=== PATIENT | male | born 1965 | race Caucasian/White ===

== ENCOUNTER 2017-06-25 19:05 | Emergency (ER) | payer BC, OTHER ==
[~2017-06-25] VITALS: Ht 177.8 cm; Wt 96.6 kg
[~2017-06-25 19:05] MED LIST: CEPH500C PO
[2017-06-25 19:13] VITALS: TEMP 36.7; Ht 177.8 cm; Wt 96.6 kg
[2017-06-25] MEDS ORDERED: SODIUM CHLORIDE 0.9% 1000ML 1,000 ML IV STA (19:26)
[2017-06-25 19:57] LABS: ISTAT IONIZED CALCIUM 1.17 mmol/l (1.12-1.32); ISTAT POTASSIUM 3.8 mEq/L (3.3-5.0)
[2017-06-25 20:16] LABS: BASO % 0.6 %; BASO ABS # 0.05 K/uL (0-0.2); EOS % 3.1 %; EOS ABS # 0.25 K/uL (0-0.5); HEMATOCRIT 43.7 % (42-52); IG# 0.01 K/uL (0.00-0.02); LYMPH ABS # 3.57 K/uL (1.2-3.4); MEAN CELL VOLUME 86.7 fL (80-100); MEAN CORPUSCULAR HEMOGLOBIN 29.8 pg (25-34); MEAN CORPUSCULAR HGB CONC 34.3 g/dl (32-36); MEAN PLATELET VOLUME 11.4 fL (7.4-10.4); MONO % 8.6 %; MONO ABS # 0.68 K/uL (0.11-0.59); NEUT % 42.6 %; NEUT ABS # 3.38 K/uL (1.4-6.5); PLATELET COUNT 238 K/uL (130-400); RED CELL DISTRIBUTION WIDTH CV 13.6 % (11.5-14.5); RED CELL DISTRIBUTION WIDTH SD 42.9 fL (36.4-46.3); WHITE BLOOD COUNT 7.94 K/uL (4.8-10.8)
--- NOTE | 2017-06-25 20:28 | EMERGENCY ROOM VISIT NOTE ---
History Report prepared by Isis: Syl Cuenca Under the Supervision of: Dr. Luke Calixto M.D. First contact with patient: 19:14 Chief Complaint: ABDOMINAL PAIN Stated Complaint: ABDOMINAL PAIN Nursing Triage Summary: Pt reports RLQ pain x 1 week, diarrhea. Still has appendix. Unable to state if anything makes pain better/worse. History of Present Illness The patient is a 52 year old male who presents to the Emergency Room with complaints of constant RLQ abdominal pain starting 1 week ago. He rates his discomfort as a 6/10 in severity. He is concerned that he might have appendicitis. He does not identify anything that improves or worsens his pain. He has had a decreased appetite. He reports intermittent diarrhea. Urine has been dark, but no other urinary symptoms. He denies any vomiting, testicular pain, back pain, chest pain, SOB, or headache. He works at a [employer] and does do some heavy lifting. He denies any trauma or known injury. He denies any history of GI problems or other medical problems. Source of History: patient Onset: 1 week ago Position: abdomen (RLQ) Symptom Intensity: 6/10 Quality: dull Timing: constant Associated Symptoms: + diarrhea, No headache, No chest pain, No SOB, No vomiting, No back pain, No urinary symptoms Review of Systems See HPI for pertinent positives & negatives. A total of 10 systems reviewed and were otherwise negative. Past Medical & Surgical Medical Problems: (1) No chronic problems Old medical records were reviewed. Nurse's notes were reviewed and I agree with. Family History No pertinent family history stated. Social History Smoking Status: Never Smoker Marital Status: Housing Status: lives with family Occupation Status: employed Current/Historical Medications No Active Prescriptions or Reported Meds Allergies Coded Allergies: No Known Allergies (Unverified , 09/20/09) Physical Exam Vital Signs Date Time Temp Pulse Resp B/P (MAP) Pulse Ox O2 Delivery O2 Flow Rate FiO2 06/25/17 21:44 68 20 119/78 98 06/25/17 20:30 65 20 142/90 100 06/25/17 19:13 36.7 67 18 152/92 99 Room Air Physical Exam General: Non-ill appearing middle age male in no acute distress. HEENT: Normal cephalic atraumatic. Pupils are equal round and reactive to light. Extraocular movements are intact. Oropharynx is pink with moist mucous membranes. No swelling of the mouth lips or tongue. Neck: Supple with a midline trachea. No meningeal signs or stiffness, no JVD or bruits. No Stridor. Chest: Clear to auscultation bilaterally. No wheezes or rhonchi. No increased work of breathing. Heart: regular rate and rhythm. Abdomen: Soft, mildly tender in the right mid abdomen, no peritonitis, nondistended without rebound guarding or rigidity. Extremities: No cyanosis clubbing or edema. No calf tenderness or assymetry Spine/Back. Non tender to palpation. No CVA tenderness Skin: Good turgor without rashes. Neurologic exam: Cranial nerves two through 12 are intact. Motor and sensation are intact and symmetrical throughout. Medical Decision & Procedures ER Provider Diagnostic Interpretation: Radiology results as stated below per my review and radiologist interpretation: ABD/PELVIS IV CONTRAST ONLY CT DOSE: 483.67 mGy.cm HISTORY: Flank pain eval for appy TECHNIQUE: Multiaxial CT images of the abdomen and pelvis were performed following the use of intravenous contrast. A dose lowering technique was utilized adhering to the principles of ALARA. COMPARISON STUDY: None. FINDINGS: The lung bases are clear. The liver, spleen, gallbladder, pancreas, kidneys, and adrenal glands are within normal limits. No bowel wall thickening or obstruction. The pelvic organs are unremarkable. No suspicious lytic or blastic osseous lesions. The appendix is normal. Several mesenteric nodes suggesting a component of mesenteric adenitis. IMPRESSION: 1. Normal appendix. 2. Mild mesenteric adenitis. 3. The Remainder of the study is unremarkable. The above report was generated using voice recognition software. It may contain grammatical, syntax or spelling errors. Electronically signed by: Kamran Pratt M.D. 06/25/2017 8:32 PM Dictated Date/Time: 06/25/2017 8:26 PM Laboratory Results 06/25/17 19:43 Red Blood Count 5.04, Mean Corpuscular Volume 86.7, Mean Corpuscular Hemoglobin 29.8, Mean Corpuscular Hemoglobin Concent 34.3, Mean Platelet Volume 11.4, Neutrophils (%) (Auto) 42.6, Lymphocytes (%) (Auto) 45.0, Monocytes (%) (Auto) 8.6, Eosinophils (%) (Auto) 3.1, Basophils (%) (Auto) 0.6, Neutrophils # (Auto) 3.38, Lymphocytes # (Auto) 3.57, Monocytes # (Auto) 0.68, Eosinophils # (Auto) 0.25, Basophils # (Auto) 0.05 06/25/17 19:43 Test 06/25/17 19:43 06/25/17 19:46 06/25/17 20:16 White Blood Count 7.94 K/uL (4.8-10.8) Red Blood Count 5.04 M/uL (4.7-6.1) Hemoglobin 15.0 g/dL (14.0-18.0) Hematocrit 43.7 % (42-52) Mean Corpuscular Volume 86.7 fL (80-100) Mean Corpuscular Hemoglobin 29.8 pg (25-34) Mean Corpuscular Hemoglobin Concent 34.3 g/dl (32-36) Platelet Count 238 K/uL (130-400) Mean Platelet Volume 11.4 fL (7.4-10.4) Neutrophils (%) (Auto) 42.6 % Lymphocytes (%) (Auto) 45.0 % Monocytes (%) (Auto) 8.6 % Eosinophils (%) (Auto) 3.1 % Basophils (%) (Auto) 0.6 % Neutrophils # (Auto) 3.38 K/uL (1.4-6.5) Lymphocytes # (Auto) 3.57 K/uL (1.2-3.4) Monocytes # (Auto) 0.68 K/uL (0.11-0.59) Eosinophils # (Auto) 0.25 K/uL (0-0.5) Basophils # (Auto) 0.05 K/uL (0-0.2) RDW Standard Deviation 42.9 fL (36.4-46.3) RDW Coefficient of Variation 13.6 % (11.5-14.5) Immature Granulocyte % (Auto) 0.1 % Immature Granulocyte # (Auto) 0.01 K/uL (0.00-0.02) Est Creatinine Clear Calc Drug Dose 97.8 ml/min Estimated GFR () 96.3 Estimated GFR (Non- 83.1 BUN/Creatinine Ratio 20.3 (10-20) Calcium Level 8.6 mg/dl (8.5-10.1) Total Bilirubin 0.3 mg/dl (0.2-1) Direct Bilirubin mg/dl (0-0.2) Aspartate Amino Transf (AST/SGOT) 37 U/L (15-37) Alanine Aminotransferase (ALT/SGPT) 41 U/L (12-78) Alkaline Phosphatase 73 U/L (45-117) Total Protein 6.7 gm/dl (6.4-8.2) Albumin 3.6 gm/dl (3.4-5.0) Lipase 158 U/L (73-393) Chemistry Specimen Hemolysis Bedside Hemoglobin 15.3 g/dl (14.0-18.0) Bedside Hematocrit 45 % (42-52) Bedside Sodium 141 mEq/L (135-144) Bedside Potassium 3.8 mEq/L (3.3-5.0) Bedside Chloride 102 mEq/L (101-112) Bedside Total CO2 27 mEq/l (24-31) Anion Gap 17.0 mmol/L (16-25) Bedside Blood Urea Nitrogen 22 mg/dl (7-18) Bedside Creatinine 1.0 mg/dl (0.6-1.3) Bedside Glucose (other) 88 mg/dl (70-99) Bedside Ionized Calcium (Mohamud) 1.17 mmol/l (1.12-1.32) Urine Color YELLOW Urine Appearance CLEAR (CLEAR) Urine pH 5.5 (4.5-7.5) Urine Specific [place] 1.027 (1.000-1.030) Urine Protein NEG (NEG) Urine Glucose (UA) NEG (NEG) Urine Ketones NEG (NEG) Urine Occult Blood NEG (NEG) Urine Nitrite NEG (NEG) Urine Bilirubin NEG (NEG) Urine Urobilinogen NEG (NEG) Urine Leukocyte Esterase NEG (NEG) Laboratory studies as stated above per my review. Medications Administered Medications (Trade) Dose Ordered Sig/Dhiraj Route Start Time Stop Time Status Last Admin Dose Admin Sodium Chloride 1,000 ml @ 999 mls/hr Q1H1M STAT IV 06/25/17 19:26 06/25/17 20:26 DC 06/25/17 19:26 999 MLS/HR ED Course 1917: Past medical records reviewed. The patient was evaluated in room C10, and a complete history and physical examination were performed. 1925: NSS 1000 ml @ 999 mls/hr IV. 2004: I reevaluated the patient. He is doing well. 2115: Upon reevaluation, the patient is resting comfortably. I discussed the results and treatment plan with him. He verbalized agreement of the treatment plan. The patient was discharged home. Medical Decision Differentials include, but are not limited to; appendicitis, gallbladder disease , colitis, musculoskeletal, urinary infection, electrolyte or metabolic abnormality. This patient comes in as described above. He was placed in room C10. He has had been having right mid abdominal pain for about a week. it has been persistent. he was worried about appendicitis. He has had no trauma. he appears well. His abdomen has mild tenderness but no peritonitis. IV access established and blood work was obtained as well as urinalysis and culture. Also did a CAT scan of his abdomen. He has no white count or fever to suggest infection. He has no acute electrolyte or metabolic abnormalities. He was hydrated with IV normal saline bolus. He was reassessed frequently. He has remained stable. His urinalysis does not suggest urinary source or problem. CAT scan was obtained and shows no evidence to suggest appendicitis or other acute abdominal pathology with the exception of mesenteric adenitis. This is likely a limited process. He can use ibuprofen for pain. Return if: increasing pain, worsening symptoms, fever or chills, any new problems or concerns. He was happy with the plan and discharged home. He should follow-up with his doctor later in the week if not better or return to ER if anything worsens Medication Reconcilliation Current Medication List: was personally reviewed by me Blood Pressure Screening Patient's blood pressure: Elevated blood pressure Blood pressure disposition: Elevated BP felt to be situational Impression Primary Impression: RLQ abdominal pain Additional Impression: Mesenteric adenitis Scribe Attestation The scribe's documentation has been prepared under my direction and personally reviewed by me in its entirety. I confirm that the note above accurately reflects all work, treatment, procedures, and medical decision making performed by me. Departure Information Dispostion Home / Self-Care Prescriptions No Active Prescriptions or Reported Meds Referrals No Doctor, Assigned (PCP) Forms Call Back Authorization, HOME CARE DOCUMENTATION FORM, IMPORTANT VISIT INFORMATION Patient Instructions My [facility] [employer] Additional Instructions Rest Drink plenty of fluids Return if: worsening of symptoms, increasing pain, fever or chills, any new problems or concerns Use ibuprofen 400 mg every 6 hours as needed for pain Follow-up with your doctor later this week for recheck or return to the ER symptoms worsen Problem Qualifiers
[2017-06-25] MEDS ORDERED: OPTIRAY 320 IV PRN (20:30)
--- NOTE | 2017-06-25 20:34 | DIAGNOSTIC IMAGING REPORT ---
ABD/PELVIS IV CONTRAST ONLY CT DOSE: 483.67 mGy.cm HISTORY: Flank pain eval for appy TECHNIQUE: Multiaxial CT images of the abdomen and pelvis were performed following the use of intravenous contrast. A dose lowering technique was utilized adhering to the principles of ALARA. COMPARISON STUDY: None. FINDINGS: The lung bases are clear. The liver, spleen, gallbladder, pancreas, kidneys, and adrenal glands are within normal limits. No bowel wall thickening or obstruction. The pelvic organs are unremarkable. No suspicious lytic or blastic osseous lesions. The appendix is normal. Several mesenteric nodes suggesting a component of mesenteric adenitis. IMPRESSION: 1. Normal appendix. 2. Mild mesenteric adenitis. 3. The Remainder of the study is unremarkable. The above report was generated using voice recognition software. It may contain grammatical, syntax or spelling errors. Electronically signed by: Kamran Pratt M.D. 06/25/2017 8:32 PM Dictated Date/Time: 06/25/2017 8:26 PM
[2017-06-25 20:58] LABS: ALBUMIN 3.6 gm/dl (3.4-5.0); CALCIUM 8.6 mg/dl (8.5-10.1); POTASSIUM 4.1 mmol/L (3.5-5.1); TOTAL PROTEIN 6.7 gm/dl (6.4-8.2)
[2017-06-25 21:26] LABS: CREATININE 1.03 mg/dl (0.60-1.40)
[2017-06-25 21:44] VITALS: BP 119/78; PULSE 68; O2SAT 98
== END 2017-06-25 21:45 | disposition home or self-care (01) ==
LOC: C.EDB 19:08 → C.EDC 21:45
DX: I88.0 Nonspecific mesenteric lymphadenitis (principal)